=== PATIENT | male | born 1975 | race Caucasian/White ===

== ENCOUNTER 2021-01-26 21:07 | Inpatient (IN) | payer BC, SELFPAY ==
[~2021-01-26] VITALS: Ht 175.3 cm; Wt 97.4 kg
[2021-01-26] MEDS ORDERED: COSE1INJ SC (23:04)
[2021-01-26 23:08] LABS: BASO # 0.1 10^3/uL (0.0-0.2); BASO % 0.6 % (0.0-1.0); EOS % 0.2 % (0.0-3.0); HEMATOCRIT 44.6 % (42.0-52.0); HEMOGLOBIN 15.3 g/dl (13.5-17.5); LYMPH # 1.3 10^3/uL (1.5-5.0); MEAN CORPUSCULAR HEMOGLOBIN 29.4 pg (27.0-33.0); MEAN CORPUSCULAR HGB CONC 34.3 g/dl (32.0-36.5); MEAN CORPUSCULAR VOLUME 85.8 fl (80.0-96.0); MONO # 1.4 10^3/uL (0.0-0.8); MONO % 11.2 % (2.0-8.0); NEUTROPHILS # 9.3 10^3/uL (1.5-8.5); NEUTROPHILS % 76.6 % (36.0-66.0); PLATELET COUNT, AUTOMATED 297 10^3/uL (150-450); WHITE BLOOD COUNT 12.2 10^3/uL (4.0-10.0)
--- NOTE | 2021-01-26 23:18 | REPVR ---
PROCEDURE INFORMATION: Exam: CT Head Without Contrast Exam date and time: 01/26/2021 10:59 PM Age: 45 years old Clinical indication: Altered mental status/memory loss TECHNIQUE: Imaging protocol: Computed tomography of the head without contrast. Radiation optimization: All CT scans at this facility use at least one of these dose optimization techniques: automated exposure control; mA and/or kV adjustment per patient size (includes targeted exams where dose is matched to clinical indication); or iterative reconstruction. COMPARISON: No relevant prior studies available. FINDINGS: Brain: Normal. No hemorrhage. Unremarkable white matter. No mass effect. Cerebral ventricles: No ventriculomegaly. Paranasal sinuses: Mild paranasal sinus disease. Mastoid air cells: Visualized mastoid air cells are well aerated. Bones/joints: Unremarkable. No acute fracture. Soft tissues: Unremarkable. IMPRESSION: No acute intracranial abnormality. Electronically signed by: Alejandro Malcolm On 01/26/2021 23:18:02 PM
[2021-01-26 23:50] LABS: ACETAMINOPHEN LEVEL < 2.0 UG/ML (10.0-30.0); ALBUMIN 4.4 GM/DL (3.2-5.2); ALT/SGPT 31 U/L (12-78); BILIRUBIN,DIRECT 0.2 MG/DL (0.0-0.2); BILIRUBIN,TOTAL 0.8 MG/DL (0.2-1.0); BLOOD UREA NITROGEN 12 MG/DL (7-18); CALCIUM LEVEL 9.4 MG/DL (8.5-10.1); CARBON DIOXIDE LEVEL 26 MEQ/L (21-32); CHLORIDE LEVEL 109 MEQ/L (98-107); CK-MB VALUE MASS < 1.0 NG/ML (<3.6); CPK CREATINE PHOSPHOKINASE 136 U/L (39-308); CREATININE FOR GFR 1.03 MG/DL (0.70-1.30); ETHYL ALCOHOL (ETHANOL) < 0.003 % (0.000-0.010); GLOMERULAR FILTRATION RATE > 60.0 (>60); GLUCOSE, FASTING 110 MG/DL (70-100); MB/CK RELATIVE INDEX 0.74 (< OR =4); POTASSIUM SERUM 3.8 MEQ/L (3.5-5.1); SALICYLATE LEVEL < 1.7 MG/DL (5.0-30.0); SODIUM LEVEL 140 MEQ/L (136-145); THYROID STIMULATING HORMONE 0.827 uIU/ML (0.358-3.740); TROPONIN I < 0.02 NG/ML (< 0.10)
[2021-01-27 02:46] LABS: AMPHETAMINES LEVEL URINE NEGATIVE (NEGATIVE); BARBITURATES URINE NEGATIVE (NEGATIVE); BENZODIAZEPINES URINE NEGATIVE (NEGATIVE); CANNABINOIDS URINE NEGATIVE (NEGATIVE); COCAINE METABOLITE URINE NEGATIVE (NEGATIVE); METHADONE URINE NEGATIVE (NEGATIVE); OPIATES URINE NEGATIVE (NEGATIVE); PHENCYCLIDINE URINE NEGATIVE (NEGATIVE)
[2021-01-27] MEDS ORDERED: D31000TA2 PO (04:19)
[2021-01-27] MEDS ORDERED: BAYE325T13 PO (04:19)
[2021-01-27] MEDS ORDERED: BENA25CA4 PO (04:19)
[2021-01-27] MEDS ORDERED: COSE1INJ SC (04:19)
[2021-01-27] MEDS ORDERED: ACET-897 PO (04:19)
[2021-01-27] MEDS ORDERED: HOME MED LIST COMPLETE! XX SCH (04:20)
[2021-01-27 05:17] LABS: RSV AMPLIFICATION NEGATIVE (NEGATIVE)
[2021-01-27] MEDS ORDERED: atenoloL 25 MG TAB PO ONE (08:30)
[2021-01-27 11:09] VITALS: BP 166/98
[2021-01-27 11:09] LABS: INR 1.05; PROTHROMBIN TIME 14.2 SECONDS (12.7-14.5)
[2021-01-27 11:10] LABS: FIBRINOGEN 257 MG/DL (268-480); PARTIAL THROMBOPLASTIN TIME 31.1 SECONDS (25.9-37.0)
[2021-01-27 11:25] LABS: C REACTIVE PROTEIN QUANTITATIV < 0.30 MG/DL (0.00-0.30); FERRITIN 160 NG/ML (26-388); LDH LACTATE DEHYDROGENASE 166 U/L (87-241)
[2021-01-27 11:47] LABS: D-DIMER QUANT < 270 ng/ml (<500)
[2021-01-27] MEDS: METOPROLOL TART 25 MG TABLET PO SCH ×2 (12:00→12:35)
[2021-01-27] MEDS: lisinopriL 5 MG TAB PO SCH ×2 (12:15→12:35)
[2021-01-27 12:34] VITALS: BP 134/90
[2021-01-27] MEDS ORDERED: FIORICET TAB PO ONE (12:40)
[2021-01-27] MEDS ORDERED: ACETAMINOPHEN TAB 650MG DOSE (2X325MG) PO PRN (12:40)
[2021-01-27] MEDS ORDERED: ACETAMINOPHEN 500 MG TAB PO ONE (12:40)
[2021-01-27] MEDS ORDERED: LISI10TA22 PO (13:25)
[2021-01-27] MEDS ORDERED: MAXA10TA14 PO (13:27)
[2021-01-27] MEDS ORDERED: IBUPROFEN 400MG TAB PO PRN (13:30)
[2021-01-27] MEDS ORDERED: METOCLOPRAMIDE 10 MG TAB PO PRN (13:30)
[2021-01-27] MEDS ORDERED: RIZATRIPTAN BENZOATE 10 MG TAB PO PRN (14:00)
--- NOTE | 2021-01-27 14:37 | HPEPDOC ---
[facility] Medical History & Physical Date of Admission Jan 27, 2021 Date of Service: Jan 27, 2021 History and Physical CHIEF COMPLAINT: Psychosis HISTORY OF PRESENT ILLNESS: 45-year-old male brought into the emergency room due to psychosis found to be positive for coronavirus with uncontrolled hypertension. Psychiatrist refuses admission to inpatient mental health unit and recommended admission to the medical service for uncontrolled hypertension and evaluation for coronavirus complications. Patient says that he has a brain tumor but this was evaluated with a CT of the head which was negative. He complains of headache for the past year for which she takes Tylenol or ibuprofen at home without nausea or vomiting diplopia or changes in visual acuity. Despite being positive for coronavirus patient has had no fever chills anosmia or dysgeusia changes in appetite nausea vomiting abdominal pain diarrhea cough shortness of breath chest pain pressure tightness muscle aches joint pain skin rash. Patient was given metoprolol lisinopril with improvement in blood pressure to 134/90. Patient was kept on contact and droplet precautions due to coronavirus infection. Inflammatory markers were normal chest x-ray had no infiltrates and patient is saturating 100% on room air not requiring supplemental oxygen and in no distress. PAST MEDICAL HISTORY: Dental caries Dyslipidemia Seasonal allergies PAST SURGICAL HISTORY: Dental extraction SOCIAL HISTORY: Full code Social alcohol use Few cigarettes while drinking alcohol Unemployed Previously worked in the [employer] industry FAMILY HISTORY: Father unknown medical problems mother no medical problems ALLERGIES: Please see below. REVIEW OF SYSTEMS: 10 point systems negative aside from positive findings in HPI HOME MEDICATIONS: Please see below. PHYSICAL EXAMINATION: VITAL SIGNS: See below GENERAL APPEARANCE: No distress HEENT: Extraocular muscles intact no JVD thyromegaly moist mucous membranes tongue is midline uvula is midline CARDIOVASCULAR: S1-S2 regular rate rhythm no murmurs rubs or gallops LUNGS: Clear to auscultation no wheezing or rales ABDOMEN: Positive bowel sounds soft nontender nondistended no rebound or guarding EXTREMITIES: No cyanosis clubbing or pitting edema LABORATORY DATA: See below. IMAGING: See below MICROBIOLOGY: Please see below. ASSESSMENT: 45-year-old male admitted to the medical service due to uncontrolled hypertension and positive coronavirus which was an incidental finding and remains asymptomatic with 100% on room air saturation chest x-ray being negative and unremarkable inflammatory markers. Patient was brought into the emergency room due to psychosis saying that he has a brain tumor with negative CT of the head. Uncontrolled hypertension Responded well to metoprolol and lisinopril Continue on lisinopril Vital signs every shift Check lipid profile and A1c in the morning to rule out metabolic syndrome Coronavirus positive Incidental finding on routine screening Patient is asymptomatic Chest x-ray has no infiltrates Patient is not hypoxic and saturating 100% on room air Contact and droplet isolation Quarantine for 10 days Psychosis Patient is convinced that he has a brain tumor CT of the head is negative Psychiatric referral in the morning and transferred to inpatient mental health unit if a bed is available. Headache As needed fioricet, maxalt, ibuprofen. Outpatient referral to neurology once out of quarantine for coronavirus for maintenance therapy. MRI of the brain as outpatient once the patient is out of quarantine for coronavirus. Vital Signs Vital Signs Date Time Temp Pulse Resp B/P (MAP) Pulse Ox O2 Delivery O2 Flow Rate FiO2 01/27/21 14:20 18 01/27/21 12:34 69 134/90 (105) 01/27/21 11:09 96.7 100 Room Air Laboratory Data Labs 24H Laboratory Tests 2 01/26/21 22:47: Immature Granulocyte % (Auto) 0.4, Neutrophils (%) (Auto) 76.6H, Lymphocytes (%) (Auto) 11.0L, Monocytes (%) (Auto) 11.2H, Eosinophils (%) (Auto) 0.2, Basophils (%) (Auto) 0.6, Neutrophils # (Auto) 9.3H, Lymphocytes # (Auto) 1.3L, Monocytes # (Auto) 1.4H, Eosinophils # (Auto) 0.0, Basophils # (Auto) 0.1, Nucleated Red Blood Cells % (auto) 0.0, Anion Gap 5L, Glomerular Filtration Rate > 60.0, Calcium Level 9.4, Total Bilirubin 0.8, Direct Bilirubin 0.2, Aspartate Amino Transf (AST/SGOT) 12, Alanine Aminotransferase (ALT/SGPT) 31, Alkaline Phosphatase 106, Total Creatine Kinase 136, Creatine Kinase MB < 1.0, Creatine Kinase MB Relative Index 0.74, Troponin I < 0.02, Total Protein 7.0, Albumin 4.4, Albumin/Globulin Ratio 1.7, Thyroid Stimulating Hormone (TSH) 0.827, Sali cylates Level < 1.7L, Acetaminophen Level < 2.0L, Ethyl Alcohol Level < 0.003 01/27/21 01:18: Urine Color YELLOW, Urine Appearance HAZY, Urine pH 5.0, Urine Specific [place] 1.025, Urine Protein 1+H, Urine Glucose (UA) 1+H, Urine Ketones 2+H, Urine Blood NEGATIVE, Urine Nitrite NEGATIVE, Urine Bilirubin NEGATIVE, Urine Urobilinogen 2.0H, Urine Leukocyte Esterase NEGATIVE, Urine WBC (Auto) 1, Urine RBC (Auto) 1, Urine Hyaline Casts (Auto) 3, Urine Bacteria (Auto) NEGATIVE, Urine Squamous Epithelial Cells 0, Urine Mucus (Auto) LARGE, Urine Sperm (Auto) , Urine Opiates Screen NEGATIVE, Urine Methadone Screen NEGATIVE, Urine Barbiturates Screen NEGATIVE, Urine Phencyclidine Screen NEGATIVE, Urine Amphetamines Screen NEGATIVE, Urine Benzodiazepines Screen NEGATIVE, Urine Cocaine Metabolite Screen NEGATIVE, Urine Cannabinoids Screen NEGATIVE 01/27/21 04:25: Coronavirus (COVID-19)(PCR) POSITIVEA, Influenza Type A (RT-PCR) NEGATIVE, Influenza Type B (RT-PCR) NEGATIVE, Respiratory Syncytial Virus (PCR) NEGATIVE 01/27/21 09:53: Erythrocyte Sedimentation Rate 1, Prothrombin Time 14.2H, Prothromb Time International Ratio 1.05, Activated Partial Thromboplast Time 31.1, Fibrinogen 257, D-Dimer, Quantitative < 270, Ferritin 160, Lactate Dehydrogenase 166, C- Reactive Protein, Quantitative < 0.30, Procalcitonin <0.05 CBC/BMP Laboratory Tests 01/26/21 22:47 Home Medications Scheduled Acetaminophen (Tylenol Extra Strength) 500 Mg Tablet, 1,000 MG PO QHS Aspirin (Aspirin) 325 Mg Tablet, 650 MG PO QHS Cholecalciferol (Vitamin D3) (Vitamin D3) 1,000 Unit Tablet, 1,000 UNITS PO DAILY Diphenhydramine HCl (Benadryl) 25 Mg Capsule, 50 MG PO QHS Lisinopril (Lisinopril) 10 Mg Tablet, 10 MG PO DAILY Rizatriptan Benzoate (Maxalt) 10 Mg Tablet, 1 TAB PO ASDIRECTED for headache Secukinumab (Cosentyx Pen (2 Pens)) 150 Mg/1 Ml Pen.injctr, 300 MG SC Q4WKS LAST DOSE WAS IN THE BEGINNING OF DECEMBER Allergies Coded Allergies: No Known Allergies (Unverified , 10/27/21) A-FIB/CHADSVASC A-FIB History Current/History of A-Fib/PAF?: No Current PO Anticoag Therapy: No Age/Risk Factor Scoring CHADSVASC: CHADSVASC Response (Comments) Value Age Risk Factor Age < 65 years old 0 Gender Risk Factor Male 0 Hx of CHF No 0 Hx of HTN No 0 Hx of Stroke/TIA/or VTE No 0 Hx of Diabetes No 0 Hx of Vascular Disease No 0 Total 0 Treatment Treatment ordered: NONE AMILCAR ALEXANDER MD Jan 27, 2021 14:36
[2021-01-27] MEDS ORDERED: **hydrALAZINE HCL** 25 MG TAB PO PRN (18:10)
[2021-01-27] MEDS ORDERED: traZODone 50 MG TAB PO PRN (18:45)
[2021-01-27 20:00] VITALS: BP 152/85
--- NOTE | 2021-01-27 20:15 | ECGEPIP ---
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
[2021-01-27 21:45] VITALS: BP 170/100
[2021-01-27] MEDS ORDERED: LORazepam 1 MG TAB PO PRN (21:55)
[2021-01-28 01:26] VITALS: BP 122/68
[2021-01-28 05:49] VITALS: BP 110/57
[2021-01-28 07:15] LABS: HEMATOCRIT 46.2 % (42.0-52.0); HEMOGLOBIN 15.7 g/dl (13.5-17.5); MEAN CORPUSCULAR HEMOGLOBIN 29.5 pg (27.0-33.0); MEAN CORPUSCULAR VOLUME 86.7 fl (80.0-96.0); PLATELET COUNT, AUTOMATED 286 10^3/uL (150-450); RED BLOOD COUNT 5.33 10^6/uL (4.30-6.10); WHITE BLOOD COUNT 7.4 10^3/uL (4.0-10.0)
--- NOTE | 2021-01-28 07:38 | REP ---
INDICATION: covid positive r/o pneumonia. COMPARISON: None. TECHNIQUE: Single portable AP view of the chest was performed. FINDINGS: There is no acute infiltrate or pulmonary edema. Lungs are clear. The heart is not significantly enlarged. The mediastinal silhouette is unremarkable. The visualized osseous structures are intact. IMPRESSION: No acute pulmonary disease. <Electronically signed by Mitchel Brown > 01/27/21 0909
[2021-01-28 08:02] LABS: ALBUMIN 3.9 GM/DL (3.2-5.2); ALT/SGPT 29 U/L (12-78); BILIRUBIN,TOTAL 0.9 MG/DL (0.2-1.0); BLOOD UREA NITROGEN 9 MG/DL (7-18); CARBON DIOXIDE LEVEL 27 MEQ/L (21-32); CHLORIDE LEVEL 109 MEQ/L (98-107); CHOLESTEROL LEVEL 170 MG/DL (<200); CHOLESTEROL RISK RATIO 4.358 (<5); CREATININE FOR GFR 0.98 MG/DL (0.70-1.30); GLOMERULAR FILTRATION RATE > 60.0 (>60); GLUCOSE, FASTING 98 MG/DL (70-100); HDL CHOLESTEROL 39 MG/DL (>40); LDL CHOLESTEROL 104 MG/DL (<100); MAGNESIUM LEVEL 1.8 MG/DL (1.8-2.4); NON-HDL-C 131 MG/DL; POTASSIUM SERUM 3.4 MEQ/L (3.5-5.1); SODIUM LEVEL 140 MEQ/L (136-145); TOTAL PROTEIN 6.8 GM/DL (6.4-8.2); TRIGLYCERIDES LEVEL 134 MG/DL (<150)
[2021-01-28 08:44] LABS: HEMOGLOBIN A1c 5.3 %
--- NOTE | 2021-01-28 09:22 | DS.PDOC ---
Discharge Summary General Date of Admission Jan 27, 2021 at 08:23 Date of Discharge 01/28/21 DISCHARGED TO [facility] ACCEPTING MD: DR JOSE DX: PSYCHOSIS Discharge Summary DISCHARGE DIAGNOSES: Uncontrolled hypertension Incidental finding of coronavirus 19+ on routine screening Psychosis History of allergic rhinitis Headache DISCHARGE MEDICATIONS: See below DISCHARGE INSTRUCTIONS: Patient is to be transferred to the inpatient mental health unit regarding his psychosis to be managed by the primary psychiatric team accepting physician is Dr. Shanell Jose. At hospital discharge patient should follow-up with her primary care physician within 1 week. Primary care physician to refer to neurology regarding recurrent headaches. CT of the head was negative . HOSPITAL COURSE: 45-year-old male admitted to the medical service due to uncontrolled hypertension and positive coronavirus which was an incidental finding and remains asymptomatic with 100% on room air saturation chest x-ray being negative and unremarkable inflammatory markers. Patient was brought into the emergency room due to psychosis saying that he has a brain tumor with negative CT of the head. In the ER patient was found to have uncontrolled hypertension and routine screening for coronavirus was positive. Hospitalist was asked to admit the patient for blood pressure control. He was kept on contact and droplet precautions. Uncontrolled hypertension Responded well to metoprolol and lisinopril ContinueD on lisinopril with holding parameters Vital signs every shift Checked lipid profile and A1c in the morning to rule out metabolic syndrome Coronavirus positive Incidental finding on routine screening Patient is asymptomatic Chest x-ray has no infiltrates Patient is not hypoxic and saturating 100% on room air Contact and droplet isolation Quarantine for 10 days Psychosis Patient is convinced that he has a brain tumor CT of the head is negative [facility] admission if bed is available. Psychiatrist Dr. Jose has been consulted. Headache As needed fioricet, maxalt, ibuprofen. Outpatient referral to neurology once out of quarantine for coronavirus for maintenance therapy. MRI of the brain as outpatient once the patient is out of quarantine for coronavirus. DISCHARGE PHYSICAL EXAMINATION: VITAL SIGNS: See below GENERAL APPEARANCE: No distress HEENT: Extraocular muscles intact no JVD thyromegaly moist mucous membranes tongue is midline uvula is midline CARDIOVASCULAR: S1-S2 regular rate rhythm no murmurs rubs or gallops LUNGS: Clear to auscultation no wheezing or rales ABDOMEN: Positive bowel sounds soft nontender nondistended no rebound or guarding EXTREMITIES: No cyanosis clubbing or pitting edema LABORATORY DATA: See below. IMAGING: See below MICROBIOLOGY: Please see below. TIME SPENT ON DISCHARGE: 30 MINUTES Vital Signs/I&Os Vital Signs Date Time Temp Pulse Resp B/P (MAP) Pulse Ox O2 Delivery O2 Flow Rate FiO2 01/28/21 08:52 117/66 01/28/21 05:49 96.8 79 18 100 Room Air I&O- Last 24 Hours up to 6 AM 01/28/21 06:00 Intake Total 990 ml Balance 990 ml Laboratory Data Labs 24H Laboratory Tests 2 01/27/21 09:53: Erythrocyte Sedimentation Rate 1, Prothrombin Time 14.2H, Prothromb Time International Ratio 1.05, Activated Partial Thromboplast Time 31.1, Fibrinogen 257, D-Dimer, Quantitative < 270, Ferritin 160, Lactate Dehydrogenase 166, C- Reactive Protein, Quantitative < 0.30, Procalcitonin <0.05 01/28/21 06:04: Nucleated Red Blood Cells % (auto) 0.0, Anion Gap 4L, Glomerular Filtration Rate > 60.0, Estimated Mean Plasma Glucose 105, Hemoglobin A1c 5.3, Calcium Level 10.0, Magnesium Level 1.8, Total Bilirubin 0.9, Aspartate Amino Transf (AST/SGOT) 14, Alanine Aminotransferase (ALT/SGPT) 29, Alkaline Phosphatase 99, Total Protein 6.8, Albumin 3.9, Albumin/Globulin Ratio 1.3, Triglycerides Level 134, Total Cholesterol 170, LDL Cholesterol 104H, Non-HDL Cholesterol (LDL + VLDL) 131, Total HDL Cholesterol 39L, Cholesterol/HDL Ratio 4.358 CBC/BMP Laboratory Tests 01/28/21 06:04 Discharge Medications Scheduled Acetaminophen (Tylenol Extra Strength) 500 Mg Tablet, 1,000 MG PO QHS, (Reported) Aspirin (Aspirin) 325 Mg Tablet, 650 MG PO QHS, (Reported) Cholecalciferol (Vitamin D3) (Vitamin D3) 1,000 Unit Tablet, 1,000 UNITS PO DAILY, (Reported) Diphenhydramine HCl (Benadryl) 25 Mg Capsule, 50 MG PO QHS, (Reported) Lisinopril (Lisinopril) 10 Mg Tablet, 10 MG PO DAILY Rizatriptan Benzoate (Maxalt) 10 Mg Tablet, 1 TAB PO ASDIRECTED for headache Secukinumab (Cosentyx Pen (2 Pens)) 150 Mg/1 Ml Pen.injctr, 300 MG SC Q4WKS, (Reported) LAST DOSE WAS IN THE BEGINNING OF DECEMBER Allergies Coded Allergies: No Known Allergies (Unverified , 01/26/21) AMILCAR ALEXANDER MD Jan 28, 2021 09:22
[2021-01-28 14:00] VITALS: BP 112/67
--- NOTE | 2021-01-28 18:46 | MHIPNPDOC ---
[facility] Progress Note Progress Note DATE OF SERVICE: 01/28/21 HISTORY: Evaluated patient via zoom. This is a 45 year old male who was brought to the ED by the Police after he was found confused and with memory lapses. According to family members he has been taking care of his grandfather and he took off, leaving his grandfather alone and that is completely out of character. This afternoon, while I was speaking with him, he reported being depressed "all my life", reported taking Lexapro. Cymbalta and Seroquel before. He says Seroquel made him feel like zombie. He reports using cocaine and and off for approximately 20 years. Reports being estranged from family members, had a recent problem with a cousin. When this insurance underwriter sales asked him what was he planning on doing in the future, he said he would be spending Thanksgiving with a lot of good friends, then he told me those friends all over the country and he became tearful. Then he told me he had lost several friends and family members, more so in the past year and he was almost in tears. VITAL SIGNS: See below. NEW TEST RESULTS: See below CURRENT MEDICATIONS: See below. MENTAL STATUS EXAMINATION: Patient is a 45-year old male, who is alert, dressed in hsopital gown, sitting on his bed, with a sitter in his room. Speech: Is rapid at times, rapid, circumstantial at times Language skills are fair Thought processes including: not very organized. Thought content: Thinking constantly about , thinks constantly about losing friends and relatives to cancer. Denies SI/HI but he says he is going to spend Thanksgiving with lots of friends who are all over the country and then he tells me has lost a lot of friends and family members to cancer. Abstract reasoning, and computation: not assessed at this time. Description of associations: he seems to be mildly delusional Description of abnormal or psychotic thoughts: He seemsto have nihilistic delusions, he is paranoid about family members. He denies TAV hallucinations, he was not responding to internal stimuli Judgment: poor Insight: poor Orientation: oriented x 3 Recent and remote memory: he has memory gaps, he seems to confabulate about his grandfather whereabouts, saying that he (GF) has covid, assuming he iw with "his friends at the hospital" Attention span and concentration: fair Language: no abnormalities observed Fund of knowledge: Mood: Depressed. Affect: congruent with mood, innapropriate, trying to conceal his sadness, trying to look happy DIAGNOSES: 1. R/O Major Depressive Disorder with psychosis 2. R/O Bipolar Disorder ASSESSMENT: The patient is depressed, trying to look happy, but he is almost in tears at times, he states he has lot lots of friends and relatives during the last year and saying he will spend Thanksgiving with family and friends that are all over the [place]. He could be suicidal and not saying it, he could be thinking about ending his life and joining his family and friends in another world. He is certainly not giving straight answers, he can't really say why he was confused. He is oriented x 3 today, his family members reported family history of mental illness and he reported it too. He mentioned being treated with Lexapro, Seroquel, Cymbalta inthe past and stopping his medications about 4 years ago. He will need to be admitted to [facility]. MANAGEMENT PLAN: Admit to [facility], send legals to [facility]. TIME SPENT: 30 minutes. Vital Signs Vital Signs Date Time Temp Pulse Resp B/P (MAP) Pulse Ox O2 Delivery O2 Flow Rate FiO2 01/28/21 14:00 96.7 82 18 112/67 (82) 96 Room Air Laboratory Data 24H Labs Laboratory Tests 2 01/28/21 06:04: Nucleated Red Blood Cells % (auto) 0.0, Anion Gap 4L, Glomerular Filtration Rate > 60.0, Estimated Mean Plasma Glucose 105, Hemoglobin A1c 5.3, Calcium Level 10.0, Magnesium Level 1.8, Total Bilirubin 0.9, Aspartate Amino Transf (AST/SGOT) 14, Alanine Aminotransferase (ALT/SGPT) 29, Alkaline Phosphatase 99, Total Protein 6.8, Albumin 3.9, Albumin/Globulin Ratio 1.3, Triglycerides Level 134, Total Cholesterol 170, LDL Cholesterol 104H, Non-HDL Cholesterol (LDL + VLDL) 131, Total HDL Cholesterol 39L, Cholesterol/HDL Ratio 4.358 CBC/BMP Laboratory Tests 01/28/21 06:04 Current Medications Current Medications Medications (Trade) Dose Ordered Sig/Bruno Route PRN Reason Start Time Stop Time Status Last Admin Dose Admin Acetaminophen (Tylenol Tab) 650 mg Q4HP PRN PO MILD PAIN or TEMP > 101 01/27/21 12:40 Home Med (Home Med List Complete!) ASDIRECTED XX 01/27/21 04:20 01/27/21 04:28 DC Hydralazine HCl (Apresoline) 25 mg Q6HP PRN PO sbp>140 or dbp>90 01/27/21 18:10 01/27/21 21:54 Ibuprofen (Advil) 400 mg Q6HP PRN PO HEADACHE 01/27/21 13:30 Lisinopril (Prinivil) 5 mg BID PO 01/27/21 12:15 01/27/21 18:07 DC Lisinopril (Prinivil) 10 mg BID PO 01/27/21 21:00 01/27/21 21:53 Lorazepam (Ativan) 1 mg Q4HP PRN PO ANXIETY 01/27/21 21:55 Metoclopramide HCl (Reglan) 10 mg Q6HP PRN PO HEADACHE 01/27/21 13:30 01/27/21 13:38 DC Metoprolol Tartrate (Lopressor) 25 mg Q6H PO 01/27/21 12:00 01/27/21 13:26 DC Rizatriptan Benzoate (Maxalt) 10 mg Q2HP PRN PO MIGRAINE 01/27/21 14:00 Trazodone HCl (Desyrel) 50 mg QHSP PRN PO INSOMNIA 01/27/21 18:45 01/27/21 21:54 Allergies Coded Allergies: No Known Allergies (Unverified , 01/26/21) REMBERTO JOSE MD Jan 28, 2021 16:21
[2021-01-28 21:00] VITALS: BP 121/71
[2021-01-28 21:08] VITALS: BP 121/71
[2021-01-29] MEDS ORDERED: LISI10TA22 PO (00:42)
[2021-01-29] MEDS ORDERED: MAXA10TA14 PO (00:42)
--- NOTE | 2021-01-29 17:49 | ECGEPIP ---
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
--- NOTE | 2021-01-29 22:12 | MHHPEPDOC ---
General Date Of Admission: Jan 29, 2021 Legal Status: 9.39 Chief Complaint Psychosis History of Present Illness HISTORY OF THE PRESENT ILLNESS: Patient is a 45 -year-old , male, who, as per previous note ( I wrote this note yesterday when I did a consult before I accepted him at [facility]); " Evaluated patient via zoom. This is a 45 year old male who was brought to the ED by the Police after he was found confused and with memory lapses. According to family members he has been taking care of his grandfather and he took off, leaving his grandfather alone and that is completely out of character. This afternoon, while I was speaking with him, he reported being depressed "all my life", reported taking Lexapro. Cymbalta and Seroquel before. He says Seroquel made him feel like zombie. He reports using cocaine and and off for approximately 20 years. Reports being estranged from family members, had a recent problem with a cousin. When this credit underwriter asked him what was he planning on doing in the future, he said he would be spending Thanksgiving with a lot of good friends, then he told me those friends all over the country and he became tearful. Then he told me he had lost several friends and family members, more so in the past year and he was almost in tears. ". TODAY, JANUARY 29, 2021: THE PATIENT WAS NOT ABLE TO SPEAK WITH ME BECAUSE HE WAS SLEEPING. hE DIDN'T SLEEP LAST NIGHT AND HE WAS RESTRAINED, HE RECEIVED HALDOL TWICE AND THORAZINE ONCE. EVENTUALLY, AROUND 5 A.M., HE FEEL ASLEEP. HE SLEPT THE ENTIRE DAY AND DIDN'T WAKE UPWHEN i CAME IN TO TALK TO HIM THE RESULTS OF THE EVALUATION ARE FROM YESTERDAY 01/28/21, WHEN I DID A CONSULT ON HIM. I COULDN'T EVALUATE HIM TODAY BECAUSE HE WAS ASLEEP Psychiatric Review of Systems Depression (2 or more weeks): depressed mood, insomnia/hypersomnia, feelings of excess/guilt, feelings of worthlesness, difficulty concentrating, appetite changes, other (THIS IS THE RESULT OF THE EVALUATION I DID ON HIM ON 01/28/21. TODAY, 01/29/21, HE WAS SOUND ASLEEP) Lazara (4 or more days of): expansive mood, decreased need for sleep, still with energy, talkativity, pressured, distractibility Psychosis: delusions, paranoia PTSD: denies Anxiety: gen/non-specific anxiety, situational anxiety Anxiety/ 6 months or more of: restlessness, keyed up, easily fatigued, difficulty concentrating, irritability, sleep disturbance Past Psychiatric History Previous Psychiatric Diagnosis: According to what the patient reported yesterday, 01/28/21: anxiety and depression Previous Psychiatric Admissions: Denied Suicide Attempts: Denied. Psychiatric Follow-up: None Psychiatric medications: He says he took Seroquel, Duloxetine and Citalopram but he stopped taking these medications about 4 years ago. He reported Seroquel made him feel like a zombie Past Medical History Medical Problems the patient said yesterday, 01/28/21, he had been taking "cancer pills" for more than 20 years and then he said he never had cancer but had psoriasis and "those are the same pills people take for cancer because they suppress their immune system" Head Injury: No Seizures: No Hospitalizations: Yes Surgeries: No (he said he was not really sure, on 01/28/21) Family Medical/Psychiatric HX Medical Problems Reports a family history of cancer Psychiatric Disorders: Yes (he says" all my family has psychiatric illnesses, but I don't know exactly what") Addiction: Yes (he said one of hisbrothers had problems) Suicide Attemps/Completions: No Addiction History other (He said for 20 years he hadused cocaine on and off but not recently) Social History Childhood: He said he had relatives, grew up with his parents, he is vague about his siblings, mentions he has a brother and apparently a sister, because this information might not be reliable because he is psychotic at this time Abuse/Trauma: He didn't respond this question Current Living Situation: Lives with his grandfather, apparently in [place], [place], where he takes care of his Education: He said he finished HS Employment: Unemployed Social Support: He says he has distanced himself from his family . Legal: He didn't answer this question Marital: He didn't answer this question. Mental Status Examination General Appearance: well groomed, appears stated age, hospital scubs/clothing Build: overweight Demeanor: average Eye Contact: avoidant Activity: anxious Behavior: cooperative, restless Speech: clear, spontaneous, reg/rate,rhythm,volume, other (disorganized at times) Mood: depressed, anxious, hypomanic Affect: full, labile, anxious, other (he tries to cover his sadness, tries to appear extremely happy, joking but he is amost tearful at times) Thought Process: circumstantial, loose, flight of ideas Thought Content (Delusions): somatic (he is extremely focused on cancer), para noia (paranoid about family members) Thought Content (Aggressive): none reported Perception (Hallucinations): none reported Perception (Other): none reported Cognition (Impairment of): attention/concentration Cognition(Intelligence Est.): average Oriented: Awake, Alert, Oriented times three Insight: poor Judgment: Poor Diagnoses 1.Unspecified mood disorder 2. R/O MDD with psychosis 3. R/O Bipolar disorder 4 A-FIB/CHADSVASC A-FIB History Current/History of A-Fib/PAF?: No Current PO Anticoag Therapy: No Age/Risk Factor Scoring CHADSVASC: CHADSVASC Response (Comments) Value Age Risk Factor Age < 65 years old 0 Gender Risk Factor Male 0 Hx of CHF No 0 Hx of HTN No 0 Hx of Stroke/TIA/or VTE No 0 Hx of Diabetes No 0 Hx of Vascular Disease No 0 Total 0 Treatment Treatment ordered: NONE Reason Anticoagulant not given: Not indicated/[id number] Assessment The patient couldn't be evaluated today, because he was sound asleep. I evaluated him on 01/28/21 while he was at the covid unit, I zoomed with him. He is depressed but he is trying to cover his depression by trying to look extremely happy. He has been acting bizarre according to family members, acting paranoid, leaving his GF alone before he was found and brought to the ED. He could have abused a substance, one of the many that are not detected in regular urine tox. He had a hard time falling asleep yesterday, he was still psychotic, he had to be restrained. Initial Treatment Plan 1. Patient was admitted on a [9.39] status. 2. Complete history was obtained. 3. With patients permission, family will be contacted and database will be expanded. 4. Patients medication regimen will be reviewed and changed accordingly. 5. Patient will be provided with protected environment. 6. Patient will be treated with individual, group, and milieu therapies. 7. Patient will receive supportive psych-education. 8. Discharge planning will commence immediately. 9. Outpatient follow-up treatment will be strongly recommended. 10. The initial treatment plan will focus initially on: * Depression. * Risk for suicide. * altered thoughts * anxiety * psychosis ESTIMATED LENGTH OF STAY: 5-7 DAYS. TIME SPENT COUNSELING AND COORDINATING INITIAL CARE: 60 minutes. Tobacco Cessation Screen If Patient is a Smoker no N/A-No Antipsychotics Vital Signs Vital Signs Date Time Temp Pulse Resp B/P (MAP) Pulse Ox O2 Delivery O2 Flow Rate FiO2 01/28/21 21:08 96.4 72 18 121/71 (88) 96 Room Air Medications Scheduled Acetaminophen (Tylenol Extra Strength) 500 Mg Tablet, 1,000 MG PO QHS for . , (Reported) Aspirin (Aspirin) 325 Mg Tablet, 650 MG PO QHS for . , (Reported) Cholecalciferol (Vitamin D3) (Vitamin D3) 1,000 Unit Tablet, 1,000 UNITS PO DAILY for . , (Reported) Diphenhydramine HCl (Benadryl) 25 Mg Capsule, 50 MG PO QHS for . , (Reported) Lisinopril (Lisinopril) 10 Mg Tablet, 10 MG PO DAILY for . , (Reported) Secukinumab (Cosentyx Pen (2 Pens)) 150 Mg/1 Ml Pen.injctr, 300 MG SC Q4WKS for . , (Reported) LAST DOSE WAS IN THE BEGINNING OF DECEMBER Scheduled PRN Rizatriptan Benzoate (Maxalt) 10 Mg Tablet, 10 MG PO BID PRN for MIGRAINE, (Reported) Allergies Coded Allergies: No Known Allergies (Unverified , 01/26/21) REMBERTO JOSE MD Jan 29, 2021 22:12
== END 2021-01-28 22:43 | DRG 199 ==
LOC: M ED 21:07 → M ED INP 01-27 08:23 → ENRESERV 01-27 09:37 → M 4MAIN 01-27 11:04
PROVIDERS: ADMIT General Practice; ATTEND General Practice
DX: I10 Essential (primary) hypertension (principal); F29 Unspecified psychosis not due to a substance or known physiological condition; R51.9 Headache, unspecified; Z79.82 Long term (current) use of aspirin; Z79.899 Other long term (current) drug therapy

== ENCOUNTER 2021-01-28 19:39 | Inpatient (IN) | payer BC, SELFPAY ==
[~2021-01-28] VITALS: Ht 175.3 cm; Wt 97.4 kg
[~2021-01-28 19:39] MED LIST: ACET-897 PO; BAYE325T13 PO; BENA25CA4 PO; COSE1INJ SC; D31000TA2 PO; LISI10TA22 PO; MAXA10TA14 PO
[2021-01-28] MEDS ORDERED: MAALOX 30 ML SUSP *UDC PO PRN (20:15)
[2021-01-28] MEDS ORDERED: ACETAMINOPHEN TAB 650MG DOSE (2X325MG) PO PRN (20:15)
[2021-01-28] MEDS ORDERED: traZODone 50 MG TAB PO PRN (20:15)
[2021-01-28] MEDS ORDERED: OLANZapine ORAL DISINTEGRATING TAB 5MG PO PRN (20:15)
[2021-01-28] MEDS ORDERED: MOM 30ML SUSPENSION UDC PO PRN (20:15)
[2021-01-28] MEDS ORDERED: diphenhydrAMINE 50MG/ML VIAL (J1200) IM STA (23:16)
[2021-01-28] MEDS ORDERED: HALOPERIDOL 5MG/ML VIAL (J1630 PER 1) IM STA (23:16)
[2021-01-28] MEDS ORDERED: LORazepam 2 MG/ML VIAL IM STA (23:16)
--- NOTE | 2021-01-28 23:23 | IPNPDOC ---
Text Note Date of Service The patient was seen on 01/28/21. NOTE TIME OF SERVICE 1115PM PSYCH CERTIFICATION FOR CODE 25 FACE TO FACE: yes PHYSICIAN ASSESSMENT: The patient was agitated and not following verbal instructions VITALS pending... MSK: gait normal REASON FOR RESTRAINT: The patient was patient was refusing to stay in his room, refusing to follow commands and refusing to take medications. He has COVID 19 and his behavior is putting staff members and other [facility] residents at risk of jovanna COVID. DE-ESCALATION INTERVENTIONS ATTEMPTED BEFORE USE OF RESTRAINTS: verbal redirection [MECHANICAL AND/OR CHEMICAL] RESTRAINTS USED: Both LENGTH OF TIME ORDERED IN RESTRAINTS: 4 hours WHEN TO DISCONTINUE RESTRAINTS: When the patient is no longer a threat to others Post evaluation of restraint due in 24 hours. CHAY ZAPIEN MD Jan 28, 2021 23:22
--- OUTSIDE RECORDS SUMMARY | 2021-01-28 23:23 | CCD ---
Author Author [facility] Organization [facility] Address Unknown Phone Unavailable Care Team Providers Care Pulmonary Function Technologist Name Role Phone BOAZ BANUELOS Unavailable Unavailable STOHR, F MARK ANTHONY PA Unavailable Unavailable STOHR, F MARK ANTHONY PA Unavailable Unavailable STOHR, F MARK ANTHONY PA Unavailable Unavailable STOHR, F MARK ANTHONY PA Unavailable Unavailable STOHR, F MARK ANTHONY PA Unavailable Unavailable STOHR, F MARK ANTHONY PA Unavailable Unavailable STOHR, F MARK ANTHONY PA Unavailable Unavailable STOHR, F MARK ANTHONY PA Unavailable Unavailable STOHR, F MARK ANTHONY PA Unavailable Unavailable STOHR, F MARK ANTHONY PA Unavailable Unavailable STOHR, F MARK ANTHONY PA Unavailable Unavailable STOHR, F MARK ANTHONY PA Unavailable Unavailable STOHR, F MARK ANTHONY PA Unavailable Unavailable Re-disclosure Warning The records that you are about to access may contain information from federally-assisted alcohol or drug abuse programs. If such information is present, then the following federally mandated warning applies: This information has been disclosed to you from records protected by federal confidentiality rules (42 CFR part 2). The federal rules prohibit you from making any further disclosure of this information unless further disclosure is expressly permitted by the written consent of the person to whom it pertains or as otherwise permitted by 42 CFR part 2. A general authorization for the release of medical or other information is NOT sufficient for this purpose. The Federal rules restrict any use of the information to criminally investigate or prosecute any alcohol or drug abuse patient.The records that you are about to access may contain highly sensitive health information, the redisclosure of which is protected by Article 27-F of the [facility] Public Health law. If you continue you may have access to information: Regarding HIV / AIDS; Provided by facilities licensed or operated by the [facility] Office of Mental Health; or Provided by the [facility] Office for People With Developmental Disabilities. If such information is present, then the following [facility] mandated warning applies: This information has been disclosed to you from confidential records which are protected by state law. State law prohibits you from making any further disclosure of this information without the specific written consent of the person to whom it pertains, or as otherwise permitted by law. Any unauthorized further disclosure in violation of state law may result in a fine or fci sentence or both. A general authorization for the release of medical or other information is NOT sufficient authorization for further disc losure. Allergies and Adverse Reactions Type Description Substance Reaction Status Data Source(s ) Propensity to adverse reactions NO KNOWN ALLERGIES NO KNOWN ALLERGIES [facility] Encounters Encounter Providers Location Date Indications Data Source(s ) Outpatient Attender: [facility] PHELBOTOMISTReferrer: MARK ANTHONY HAWKINS [id number] 12/23/2020 12:14:16 PM EDT - 12/23/2020 11:59:16 PM EDT [facility] Patient discharged. Medications No Information Insurance Providers Payer name Policy type / Coverage type Policy ID Covered republican ID Covered republican's relationship to liz Policy Liz Plan Information [facility] [id number] Self [id number] SELF PAY ONLY [id number] SP [id number] Problems, Conditions, and Diagnoses Code Display Name Description Problem Type Effective Dates Data Source(s) E78.5 Hyperlipidemia, unspecified Hyperlipidemia, unspecifie d Diagnosis 12/23/2020 12:14:16 PM EDT [facility] Z13.0 Encounter for screening for diseases of the blood and blood-forming organs and certain disorders involving the immune mechanism Encounter for screening for diseases of the blood and blood-forming organs and certain disorders involving the immune mechanism Diagnosis 12/23/2020 12:14:16 PM EDT [facility] M10.9 Gout, unspecified Gout, unspecified Diagnosis 12/23/2020 12:14:16 PM EDT [facility] Z13.29 Encounter for screening for other suspec jase endocrine disorder Encounter for screening for other suspected endocrine disorder Diagnosis 0 12/23/2020 12:14:16 PM EDT [facility] Surgeries/Procedures No Information Results ID Date Data Source [id number] 01/27/2021 04:25:00 AM EDT [facility] Name Value Range Interpretation Code Description Data Jennifer rce(s) Supporting Document(s) SARS coronavirus 2 RNA [Presence] in Res piratory specimen by DONG with probe detection POSITIVE [facility] This lab was ordered by [facility] a nd reported by [facility]. Procedure Social History No Information
[2021-01-29] MEDS ORDERED: MAXA10TA14 PO (00:42)
[2021-01-29] MEDS ORDERED: LISI10TA22 PO (00:42)
[2021-01-29] MEDS ORDERED: HOME MED LIST COMPLETE! XX SCH (00:45)
[2021-01-29] MEDS ORDERED: diphenhydrAMINE 50MG/ML VIAL (J1200) IM STA (01:25)
[2021-01-29] MEDS ORDERED: HALOPERIDOL 5MG/ML VIAL (J1630 PER 1) IM STA (01:25)
[2021-01-29] MEDS ORDERED: LORazepam 2 MG/ML VIAL IM STA (01:25)
[2021-01-29] MEDS ORDERED: chlorproMAZINE INJ 50MG/2ML AMP (J3230) IM STA (03:14)
--- NOTE | 2021-01-29 03:16 | IPNPDOC ---
Text Note Date of Service The patient was seen on 01/29/21. NOTE TIME OF SERVICE 317AM PSYCH CERTIFICATION FACE TO FACE: yes PHYSICIAN ASSESSMENT: The patient is still agitated and talking loudly; per d/w RN Yariel Rocha would like to renew the physical restraints. VITALS reviewed MSK: arms and legs in restraints PSYCH: A&O /able to understand and follow all commands REASON FOR RESTRAINT: The patient was patient is still agitated and not food services coordinator perating with [facility] staff. DE-ESCALATION INTERVENTIONS ATTEMPTED BEFORE USE OF RESTRAINTS: verbal redirection [MECHANICAL AND/OR CHEMICAL] RESTRAINTS USED: Both LENGTH OF TIME ORDERED IN RESTRAINTS: 4 hours WHEN TO DISCONTINUE RESTRAINTS: When the patient is more cooperative Post evaluation of restraint due in 24 hours. CHAY ZAPIEN MD Jan 29, 2021 03:16
[2021-01-29 06:24] VITALS: BP 121/76
[2021-01-29] MEDS: SERTRALINE HCL 50 MG TAB PO SCH (09:00)
[2021-01-29 16:18] VITALS: BP 122/62
--- NOTE | 2021-01-29 18:06 | HPEPDOC ---
[facility] Medical History & Physical Date of Admission Jan 28, 2021 Date of Service: Jan 29, 2021 History and Physical CHIEF COMPLAINT: Psychosis HISTORY OF PRESENT ILLNESS: Mr. Willis is a 45-year-old male with dyslipidemia and seasonal allergies who presents with psychosis and incidentally found to be Covid positive. Patient was initially admitted to inpatient medicine on January 27, 2021. Patient's blood pressure was controlled and was medically cleared. Patient was then discharged to inpatient mental health unit. Overnight, patient was aggressive and had chemical restraints. Patient was seen this evening. He was sleeping comfortably in bed. When I woke patient, he was groggy but calm. He denied any fever, chest pain, abdominal pain, diarrhea, or dysuria. Reports some shortness of breath and sore throat from the previous night. Reviewing patient's imaging and lab work, his chest x-ray on admission was negative for any acute process. Patient is afebrile and without leukocytosis. He is doing well at room air. I cautioned the patient that if he were to feel any worsening dyspnea, productive cough, or fever, to let a nurse know. PAST MEDICAL HISTORY: 1. Dental caries 2. Dyslipidemia 3. Seasonal allergies 4. Covid positive in January 27, 2021 PAST SURGICAL HISTORY: 1. Dental extraction SOCIAL HISTORY: Tobacco use: Current smoker ETOH: Socially drinks alcohol FAMILY HISTORY: No known medical history in father or mother ALLERGIES: Please see below. REVIEW OF SYSTEMS: CONSTITUTIONAL: Denies any fever or chills. ENT: Reports sore throat. RESPIRATORY: Reports mild shortness of breath. Denies cough. CARDIOVASCULAR: Denies chest pain. GASTROINTESTINAL: Denies abdominal pain. Denies diarrhea. GENITOURINARY: Denies dysuria. CUTANEOUS: Denies rashes. HEMATOLOGICAL: Denies bruises. NEUROLOGICAL: Denies neuropathy. PSYCHOLOGICAL: Denies anxiety. Denies depression. HOME MEDICATIONS: Please see below. PHYSICAL EXAMINATION: VITAL SIGNS: Temperature 97.6, pulse 82, respiratory rate 16, blood pressure 122/62, pulse oximetry 97% on room air. GENERAL: Comfortable, in no apparent distress. HEENT: EOMI, sclera clear. NECK: Supple. RESPIRATORY: Lungs sounds are diminished but clear to auscultation bilaterally. CARDIOVASCULAR: Regular rate and rhythm. ABDOMEN: Soft, nontender, no guarding or rebound tenderness. Normal bowel sounds. MUSCLE SKELETAL: Muscle strength 5/5 in all extremities. NEUROLOGICAL: CN 312 grossly intact. PSYCHOLOGICAL: Normal mood and affect LABORATORY DATA: See below. IMAGING: Radiologist interpretation CT head without contrast No acute intracranial abnormality. Chest x-ray No acute pulmonary disease. MICROBIOLOGY: Please see below. ASSESSMENT and PLAN: 1. Psychosis Being managed in the inpatient mental health unit 2. Covid positive Saturating well at room air. No need for steroid Patient is ambulatory. Will provide DVT prophylaxis with aspirin Procalcitonin is negative. No need for antibiotics Monitor oxygen saturation and symptoms Continue quarantine If patient has a short stay in [facility], can consider outpatient monoclonal's if patient is willing to consent 3. Hypertension Blood pressures controlled off of lisinopril. Last lisinopril dose was on 01/27 May be secondary to agitation Monitor blood pressure Thank you for consulting us. We will sign off at this time. If there is any further questions or concerns, please do not hesitate to reconsult us. Vital Signs Vital Signs Date Time Temp Pulse Resp B/P (MAP) Pulse Ox O2 Delivery O2 Flow Rate FiO2 01/29/21 16:18 97.6 82 16 122/62 (82) 97 Room Air Home Medications Scheduled Acetaminophen (Tylenol Extra Strength) 500 Mg Tablet, 1,000 MG PO QHS for . Aspirin (Aspirin) 325 Mg Tablet, 650 MG PO QHS for . Cholecalciferol (Vitamin D3) (Vitamin D3) 1,000 Unit Tablet, 1,000 UNITS PO DAILY for . Diphenhydramine HCl (Benadryl) 25 Mg Capsule, 50 MG PO QHS for . Lisinopril (Lisinopril) 10 Mg Tablet, 10 MG PO DAILY for . Secukinumab (Cosentyx Pen (2 Pens)) 150 Mg/1 Ml Pen.injctr, 300 MG SC Q4WKS for . LAST DOSE WAS IN THE BEGINNING OF DECEMBER Scheduled PRN Rizatriptan Benzoate (Maxalt) 10 Mg Tablet, 10 MG PO BID PRN for MIGRAINE Allergies Coded Allergies: No Known Allergies (Unverified , 01/26/21) A-FIB/CHADSVASC A-FIB History Current/History of A-Fib/PAF?: No BEATRIZ GRIFFIN DO Jan 29, 2021 18:06
[2021-01-29] MEDS: ASPIRIN 81MG ENTERIC TABLET PO SCH (20:35)
[2021-01-30 06:58] VITALS: BP 163/93
[2021-01-30] MEDS: ASPIRIN 81MG ENTERIC TABLET PO SCH (10:09)
[2021-01-30] MEDS: SERTRALINE HCL 50 MG TAB PO SCH (10:09)
[2021-01-30 13:24] VITALS: BP 135/83
--- NOTE | 2021-01-30 15:56 | MHIPNPDOC ---
[facility] Progress Note Progress Note The following H and PE was done on 01/29/21 but unfortunately, it was done on the patient previous account, so, I have copied it to be visible on his current account [facility] History & Physical Patient Name: Isauro Willis Unit Number: [id number] Date of : 1975 Patient Status: Discharged Inpatient Attending Doctor: Landy Patterson MD History and Physical General Date Of Admission: Jan 29, 2021 Legal Status: 9.39 Chief Complaint Psychosis History of Present Illness HISTORY OF THE PRESENT ILLNESS: Patient is a 45 -year-old , male, who, as per previous note ( I wrote this note yesterday when I did a consult before I accepted him at [facility]); " Evaluated patient via zoom. This is a 45 year old male who was brought to the ED by the Police after he was found confused and with memory lapses. According to family members he has been taking care of his grandfather and he took off, leaving his grandfather alone and that is completely out of character. This afternoon, while I was speaking with him, he reported being depressed "all my life", reported taking Lexapro. Cymbalta and Seroquel before. He says Seroquel made him feel like zombie. He reports using cocaine and and off for approximately 20 years. Reports being estranged from family members, had a recent problem with a cousin. When this procedure writer asked him what was he planning on doing in the future, he said he would be spending Thanksgiving with a lot of good friends, then he told me those friends all over the country and he became tearful. Then he told me he had lost several friends and family members, more so in the past year and he was almost in tears. ". TODAY, JANUARY 29, 2021: THE PATIENT WAS NOT ABLE TO SPEAK WITH ME BECAUSE HE WAS SLEEPING. hE DIDN'T SLEEP LAST NIGHT AND HE WAS RESTRAINED, HE RECEIVED HALDOL TWICE AND THORAZINE ONCE. EVENTUALLY, AROUND 5 A.M., HE FEEL ASLEEP. HE SLEPT THE ENTIRE DAY AND DIDN'T WAKE UPWHEN i CAME IN TO TALK TO HIM THE RESULTS OF THE EVALUATION ARE FROM YESTERDAY 01/28/21, WHEN I DID A CONSULT ON HIM. I COULDN'T EVALUATE HIM TODAY BECAUSE HE WAS ASLEEP Psychiatric Review of Systems Depression (2 or more weeks): depressed mood, insomnia/hypersomnia, feelings of excess/guilt, feelings of worthlesness, difficulty concentrating, appetite changes, other (THIS IS THE RESULT OF THE EVALUATION I DID ON HIM ON 01/28/21. TODAY, 01/29/21, HE WAS SOUND ASLEEP) Lazara (4 or more days of): expansive mood, decreased need for sleep, still with energy, talkativity, pressured, distractibility Psychosis: delusions, paranoia PTSD: denies Anxiety: gen/non-specific anxiety, situational anxiety Anxiety/ 6 months or more of: restlessness, keyed up, easily fatigued, difficulty concentrating, irritability, sleep disturbance Past Psychiatric History Previous Psychiatric Diagnosis: According to what the patient reported yesterday, 01/28/21: anxiety and depression Previous Psychiatric Admissions: Denied Suicide Attempts: Denied. Psychiatric Follow-up: None Psychiatric medications: He says he took Seroquel, Duloxetine and Citalopram but he stopped taking these medications about 4 years ago. He reported Seroquel made him feel like a zombie Past Medical History Medical Problems the patient said yesterday, 01/28/21, he had been taking "cancer pills" for more than 20 years and then he said he never had cancer but had psoriasis and "those are the same pills people take for cancer because they suppress their immune system" Head Injury: No Seizures: No Hospitalizations: Yes Surgeries: No (he said he was not really sure, on 01/28/21) Family Medical/Psychiatric HX Medical Problems Reports a family history of cancer Psychiatric Disorders: Yes (he says" all my family has psychiatric illnesses, but I don't know exactly what") Addiction: Yes (he said one of hisbrothers had problems) Suicide Attemps/Completions: No Addiction History other (He said for 20 years he hadused cocaine on and off but not recently) Social History Childhood: He said he had relatives, grew up with his parents, he is vague about his siblings, mentions he has a brother and apparently a sister, because this information might not be reliable because he is psychotic at this time Abuse/Trauma: He didn't respond this question Current Living Situation: Lives with his grandfather, apparently in [place], [place], where he takes care of his GF Education: He said he finished HS Employment: Unemployed Social Support: He says he has distanced himself from his family . Legal: He didn't answer this question Marital: He didn't answer this question. Mental Status Examination Mental Status Examination General Appearance: well groomed, appears stated age, hospital scubs/clothing Build: overweight Demeanor: average Eye Contact: avoidant Activity: anxious Behavior: cooperative, restless Speech: clear, spontaneous, reg/rate,rhythm,volume, other (disorganized at times) Mood: depressed, anxious, hypomanic Affect: full, labile, anxious, other (he tries to cover his sadness, tries to appear extremely happy, joking but he is amost tearful at times) Thought Process: circumstantial, loose, flight of ideas Thought Content (Delusions): somatic (he is extremely focused on cancer), paranoia (paranoid about family members) Thought Content (Aggressive): none reported Perception (Hallucinations): none reported Perception (Other): none reported Cognition (Impairment of): attention/concentration Cognition(Intelligence Est.): average Oriented: Awake, Alert, Oriented times three Insight: poor Judgment: Poor Diagnoses 1.Unspecified mood disorder 2. R/O MDD with psychosis 3. R/O Bipolar disorder 4 A-FIB/CHADSVASC SCREEN A-FIB/CHADSVASC A-FIB History Current/History of A-Fib/PAF?: No Current PO Anticoag Therapy: No Age/Risk Factor Scoring CHADSVASC: CHADSVASC Response (Comments) Value Age Risk Factor Age < 65 years old 0 Gender Risk Factor Male 0 Hx of CHF No 0 Hx of HTN No 0 Hx of Stroke/TIA/or VTE No 0 Hx of Diabetes No 0 Hx of Vascular Disease No 0 Total 0 Treatment Treatment ordered: NONE Reason Anticoagulant not given: Not indicated/[id number] Assessment/Plan Assessment The patient couldn't be evaluated today, because he was sound asleep. I eval uated him on 01/28/21 while he was at the covid unit, I zoomed with him. He is depressed but he is trying to cover his depression by trying to look extremely happy. He has been acting bizarre according to family members, acting paranoid, leaving his GF alone before he was found and brought to the ED. He could have abused a substance, one of the many that are not detected in regular urine tox. He had a hard time falling asleep yesterday, he was still psychotic, he had to be restrained. Initial Treatment Plan 1. Patient was admitted on a [9.39] status. 2. Complete history was obtained. 3. With patients permission, family will be contacted and database will be expanded. 4. Patients medication regimen will be reviewed and changed accordingly. 5. Patient will be provided with protected environment. 6. Patient will be treated with individual, group, and milieu therapies. 7. Patient will receive supportive psych-education. 8. Discharge planning will commence immediately. 9. Outpatient follow-up treatment will be strongly recommended. 10. The initial treatment plan will focus initially on: * Depression. * Risk for suicide. * altered thoughts * anxiety * psychosis ESTIMATED LENGTH OF STAY: 5-7 DAYS. TIME SPENT COUNSELING AND COORDINATING INITIAL CARE: 60 minutes. Tobacco Cessation Screen If Patient is a Smoker no N/A-No Antipsychotics Vital Signs Vital Signs Date Time Temp Pulse Resp B/P (MAP) Pulse Ox O2 Delivery O2 Flow Rate FiO2 01/28/21 21:08 96.4 72 18 121/71 (88) 96 Room Air Medications Scheduled Acetaminophen (Tylenol Extra Strength) 500 Mg Tablet, 1,000 MG PO QHS for . , (Reported) Aspirin (Aspirin) 325 Mg Tablet, 650 MG PO QHS for . , (Reported) Cholecalciferol (Vitamin D3) (Vitamin D3) 1,000 Unit Tablet, 1,000 UNITS PO DAILY for . , (Reported) Diphenhydramine HCl (Benadryl) 25 Mg Capsule, 50 MG PO QHS for . , (Reported) Lisinopril (Lisinopril) 10 Mg Tablet, 10 MG PO DAILY for . , (Reported) Secukinumab (Cosentyx Pen (2 Pens)) 150 Mg/1 Ml Pen.injctr, 300 MG SC Q4WKS for . , (Reported) LAST DOSE WAS IN THE BEGINNING OF DECEMBER Scheduled PRN Rizatriptan Benzoate (Maxalt) 10 Mg Tablet, 10 MG PO BID PRN for MIGRAINE, (Reported) Allergies Coded Allergies: No Known Allergies (Unverified , 01/26/21) REMBERTO JOSE MD Jan 29, 2021 22:12 Vital Signs Vital Signs Date Time Temp Pulse Resp B/P (MAP) Pulse Ox O2 Delivery O2 Flow Rate FiO2 01/30/21 13:24 97.7 80 18 135/83 (100) 98 Room Air Current Medications Current Medications Medications (Trade) Dose Ordered Sig/Bruno Route PRN Reason Start Time Stop Time Status Last Admin Dose Admin Acetaminophen (Tylenol Tab) 650 mg Q6HP PRN PO HEADACHE or MILD DISCOMFORT 01/28/21 20:15 Al Hydrox/Mg Hydrox/Simethicone (Mylanta) 30 ml Q4HP PRN PO HEARTBURN/INDIGESTION 01/28/21 20:15 Aspirin (Ecotrin) 81 mg DAILY PO 01/29/21 09:00 01/30/21 10:09 Chlorpromazine HCl (Thorazine) 100 mg STAT STAT IM 01/29/21 03:14 01/29/21 03:17 DC 01/29/21 03:34 Diphenhydramine HCl (Benadryl) 50 mg STAT STAT IM 01/28/21 23:16 01/28/21 23:20 DC 01/28/21 23:33 Diphenhydramine HCl (Benadryl) 50 mg STAT STAT IM 01/29/21 01:25 01/29/21 01:28 DC 01/29/21 01:40 Haloperidol (Haldol) 10 mg STAT STAT IM 01/28/21 23:16 01/28/21 23:20 DC 01/28/21 23:33 Haloperidol (Haldol) 10 mg STAT STAT IM 01/29/21 01:25 01/29/21 01:28 DC 01/29/21 01:40 Home Med (Home Med List Complete!) ASDIRECTED XX 01/29/21 00:45 01/29/21 00:46 DC Lisinopril (Prinivil) 10 mg DAILY PO 01/31/21 09:00 Lorazepam (Ativan) 1 mg STAT STAT IM 01/29/21 01:25 01/29/21 01:28 DC 01/29/21 01:40 Lorazepam (Ativan) 2 mg STAT STAT IM 01/28/21 23:16 01/28/21 23:20 DC 01/28/21 23:33 Magnesium Hydroxide (Milk Of Magnesia) 30 ml DAILYPRN PRN PO CONSTIPATION 10/29/21 20:15 Olanzapine (ZyPREXA ZYDIS) 5 mg Q4HP PRN PO AGITATION 01/28/21 20:15 01/30/21 05:54 Sertraline HCl (Zoloft) 50 mg DAILY PO 01/29/21 09:00 01/30/21 10:09 Trazodone HCl (Desyrel) 50 mg QHSP PRN PO INSOMNIA 01/28/21 20:15 Allergies Coded Allergies: No Known Allergies (Unverified , 01/26/21) REMBERTO JOSE MD Jan 30, 2021 15:56
--- NOTE | 2021-01-30 16:19 | MHIPNPDOC ---
[facility] Progress Note Progress Note DATE OF SERVICE: 01/30/21 HISTORY: 45 year old male with h/o confusion, paranoia, who was admitted to the Hospital because he was feeling confused. He denies racing thoughts, he says he is less anxious and less depressed. Denies suicidal/homicidal ideation. This time, he tells me that he he is ready to go home,he misses his dg, who, he says is home alone. He says he has to pay his bills and tells me his GF is hospitalized but not in this area, because he caught covid too. He says he doesn't know why was he confused, he adamantly denies using illegal drugs ( those that can't be detected in urine toxicology) VITAL SIGNS: See below. NEW TEST RESULTS: See below CURRENT MEDICATIONS: See below. MENTAL STATUS EXAMINATION: General Appearance: well groomed, appears stated age, hospital scubs/clothing Build: overweight Demeanor: average Eye Contact: good Activity: calm, cooperative Behavior: cooperative, restless Speech: clear, spontaneous, reg/rate,rhythm,volume, organized at this time Mood: mildly anxious Affect: full, appropriate, congruent with mood Thought Process: linear and coherent Thought Content (Delusions): Denies Thought Content (Aggressive): none reported Perception (Hallucinations): none reported Perception (Other): none reported Cognition (Impairment of): none Cognition(Intelligence Est.): average Oriented: Awake, Alert, Oriented times three Insight: improving Judgment: improving Diagnoses 1.Unspecified mood disorder 2. R/O MDD with psychosis 3. R/O Bipolar disorder ASSESSMENT: The patient is more organized, he is mildly anxious, but he is not suicidal, homicidal or psychotic at this time. Will continue with current treatment plan MANAGEMENT PLAN: As above TIME SPENT: 15 minutes. Vital Signs Vital Signs Date Time Temp Pulse Resp B/P (MAP) Pulse Ox O2 Delivery O2 Flow Rate FiO2 01/30/21 13:24 97.7 80 18 135/83 (100) 98 Room Air Current Medications Current Medications Medications (Trade) Dose Ordered Sig/Bruno Route PRN Reason Start Time Stop Time Status Last Admin Dose Admin Acetaminophen (Tylenol Tab) 650 mg Q6HP PRN PO HEADACHE or MILD DISCOMFORT 01/28/21 20:15 Al Hydrox/Mg Hydrox/Simethicone (Mylanta) 30 ml Q4HP PRN PO HEARTBURN/INDIGESTION 01/28/21 20:15 Aspirin (Ecotrin) 81 mg DAILY PO 01/29/21 09:00 01/30/21 10:09 Chlorpromazine HCl (Thorazine) 100 mg STAT STAT IM 01/29/21 03:14 01/29/21 03:17 DC 01/29/21 03:34 Diphenhydramine HCl (Benadryl) 50 mg STAT STAT IM 01/28/21 23:16 01/28/21 23:20 DC 01/28/21 23:33 Diphenhydramine HCl (Benadryl) 50 mg STAT STAT IM 01/29/21 01:25 01/29/21 01:28 DC 01/29/21 01:40 Haloperidol (Haldol) 10 mg STAT STAT IM 01/28/21 23:16 01/28/21 23:20 DC 01/28/21 23:33 Haloperidol (Haldol) 10 mg STAT STAT IM 01/29/21 01:25 01/29/21 01:28 DC 01/29/21 01:40 Home Med (Home Med List Complete!) ASDIRECTED XX 01/29/21 00:45 01/29/21 00:46 DC Lisinopril (Prinivil) 10 mg DAILY PO 01/31/21 09:00 Lorazepam (Ativan) 1 mg STAT STAT IM 01/29/21 01:25 01/29/21 01:28 DC 01/29/21 01:40 Lorazepam (Ativan) 2 mg STAT STAT IM 01/28/21 23:16 01/28/21 23:20 DC 01/28/21 23:33 Magnesium Hydroxide (Milk Of Magnesia) 30 ml DAILYPRN PRN PO CONSTIPATION 01/28/21 20:15 Olanzapine (ZyPREXA ZYDIS) 5 mg Q4HP PRN PO AGITATION 01/28/21 20:15 01/30/21 05:54 Sertraline HCl (Zoloft) 50 mg DAILY PO 01/29/21 09:00 01/30/21 10:09 Trazodone HCl (Desyrel) 50 mg QHSP PRN PO INSOMNIA 01/28/21 20:15 Allergies Coded Allergies: No Known Allergies (Unverified , 01/26/21) REMBERTO JOSE MD Jan 30, 2021 16:09
[2021-01-31 06:51] VITALS: BP 137/84
[2021-01-31 09:18] VITALS: BP 137/84
[2021-01-31] MEDS: ASPIRIN 81MG ENTERIC TABLET PO SCH (09:18)
[2021-01-31] MEDS: SERTRALINE HCL 50 MG TAB PO SCH (09:18)
[2021-01-31] MEDS ORDERED: SERT50TA29 PO (09:52)
--- NOTE | 2021-01-31 11:11 | MHDSPDOC ---
[facility] Discharge Summary Discharge Summary DATE OF ADMISSION: Jan 28, 2021 at 22:59 DATE OF DISCHARGE: January 31, 2021 at 956 DISCHARGE DIAGNOSES: 1.Unspecified mood disorder 2. Insomnia history REASON FOR ADMISSION: Patient is a 45 year old Single, male who was transferred to inpatient psychiatry from medical unit for with h/o confusion, paranoia, who was admitted to the Hospital because he was feeling confused. He denies racing thoughts, he says he is less anxious and less depressed. Denies suicidal/homicidal ideation. This time, he tells me that he he is ready to go home,he misses his dog, who, he says is home alone. He says he has to pay his bills and tells me his GF is hospitalized but not in this area, because he caught covid too. He says he doesn't know why was he confused, he adamantly denies using illegal drugs (those that can't be detected in urine toxicology). It appears that the patient was confused and concurrently had Covid symptoms but did not know this. He was walking his dog and became confused. Patient possibly was confused due to his Covid states that he has had difficulty sleeping x 1 month. According to medical H + P patient had no other abnormalities relating to Covid. PER H + P on medical: Patient is 45-year-old male brought into the emergency room due to psychosis found to be positive for coronavirus with uncontrolled hypertension. Psychiatrist refuses admission to inpatient mental health unit and recommended admission to the medical service for uncontrolled hypertension and evaluation for coronavirus complications. Patient says that he has a brain tumor but this was evaluated with a CT of the head which was negative. He complains of headache for the past year for which she takes Tylenol or ibuprofen at home without nausea or vomiting diplopia or changes in visual acuity. Despite being positive for coronavirus patient has had no fever chills anosmia or dysgeusia changes in appetite nausea vomiting abdominal pain diarrhea cough shortness of breath chest pain pressure tightness muscle aches joint pain skin rash. Patient was given metoprolol Lisinopril with improvement in blood pressure to 134/90. Patient was kept on contact and droplet precautions due to coronavirus infection. Inflammatory markers were normal chest x-ray had no infiltrates and patient is saturating 100% on room air not requiring supplemental oxygen and in no distress. VITAL SIGNS: See below. CONSULTANTS INVOLVED: See Medical H + P by Hospitalist TREATMENT AND PROGRESS ON THE UNIT: Patient was admitted to the [facility] on a 9.39 legal status was afforded the following treatment modalities: 1) Individual Therapy 2) Group Therapy 3) Medication Management 4) Milieu Therapy 5) Safe Environment HOSPITAL COURSE: Patient was admitted to [facility] on a 9.39 legal status. Patient was started on Zoloft and continued on his medications from the medical unit, he found medications beneficial and tolerated them well. Mood, anxiety, and intrusive thoughts improved with treatment. Pt was unable to attend groups during stay due to COVID quarantine. Pts symptoms improved with treatment. On day of discharge pt. denied depression, anxiety, insomnia, SI/HI, hallucinations, delusions. Pt was discharged home with follow-up with. Pt felt safe for discharge. DISCHARGE ASSESSMENT: In today's interview, patient is alert and oriented, pt.s dress is appropriate. Hygiene and grooming is well-kempt. Smiles on approach and is pleasant and engaged in the interview. Denies depression and anxiety. Denies suicidal and homicidal ideation, planning or intent. Denies and is not observed with winsome, psychotic symptoms of delusions, bizarre thinking, obsessions, paranoia, ruminations illogical thoughts, flight of ideas or having poor insight and judgement. Reinforced with patient need to abstain from alcohol and drugs. At discharge patient has normal mentation, declines further hospitalization on a voluntary status and meets criteria for discharge today. He stated that he was driving in the area, walking his dog and became confused. He has not recollection of why this occurred. At his discharge he was alert and oriented to person, place, time and situation. He further was able to recall short and fdc memory. He states that he is returning home and that he no longer feels the need for inpatient hospitalization. MENTAL STATUS EXAMINATION ON DISCHARGE: Patient is a 45 year old Single, male who was transferred to inpatient psychiatry from medical unit for with h/o confusion, paranoia, who was admitted to the Hospital because he was feeling confused. Speech: Is fluid, conversant, normal rate, tone and volume Language skills are intact Thought processes including: linear and goal oriented Thought content: denies depression and anxiety. Denies suicidal/homicidal ideation, planning or intent. Abstract reasoning, and computation: fair Description of associations: denies, none observed Description of abnormal or psychotic thoughts: denies, none observed. Judgment: fair Insight: fair Orientation: alert and oriented to person, place, time and situation Recent and remote memory: intact Attention span and concentration: good Language: expansive Fund of knowledge: average Mood: Euthymic Mood Affect: reactive Suicide Risk Assessment: 1) Does the patient wish to be ? No 2) Since your admission, have you had any actual thought of killing yourself? No 3) Since your admission, have you been thinking about how you might do this? No 4) Since your admission, have you had these thoughts and had some intention of acting on them? No 5) Since your admission, have you started to work out or worked out the details of how to kill yourself? No 5A) Do you intent to carry out this plan? No and NA 6) Have you ever done anything, started anything, or prepared to do anything with any intent to ? No 6A) How long since your admission did you do any of these? NA MEDICATIONS ON DISCHARGE: See Medication Reconciliation PLAN/FOLLOWUP ARRANGEMENTS: At the time of his discharge the patient did not have appointments for outpatient mental health services, the inventory control planner is looking into a new provider for him, she was unsuccessful at the time of his discharge. The patient was aware of this and requested that he be called about his appointments. The amount of time spent in the coordination of care for this patient was approximately 25 minutes ETOH/Disorder Med Rx ETOH/DRUG DISORDER RX: N/A Vital Signs/I&Os Vital Signs Date Time Temp Pulse Resp B/P (MAP) Pulse Ox O2 Delivery O2 Flow Rate FiO2 01/31/21 09:18 137/84 01/31/21 06:51 98.7 78 16 96 Room Air Medications Scheduled Acetaminophen (Tylenol Extra Strength) 500 Mg Tablet, 1,000 MG PO QHS for . , (Reported) Aspirin (Aspirin) 325 Mg Tablet, 650 MG PO QHS for . , (Reported) Cholecalciferol (Vitamin D3) (Vitamin D3) 1,000 Unit Tablet, 1,000 UNITS PO DA IAN for . , (Reported) Diphenhydramine HCl (Benadryl) 25 Mg Capsule, 50 MG PO QHS for . , (Reported) Lisinopril (Lisinopril) 10 Mg Tablet, 10 MG PO DAILY for . , (Reported) Secukinumab (Cosentyx Pen (2 Pens)) 150 Mg/1 Ml Pen.injctr, 300 MG SC Q4WKS for . , (Reported) LAST DOSE WAS IN THE BEGINNING OF DECEMBER Sertraline HCl (Sertraline HCl) 50 Mg Tablet, 50 MG PO DAILY for Depression, #7 Sertraline Hcl (Sertraline HCl) 50 Mg Tablet, 50 MG PO DAILY for depression, #7 Scheduled PRN Rizatriptan Benzoate (Maxalt) 10 Mg Tablet, 10 MG PO BID PRN for MIGRAINE, (Reported) Allergies Coded Allergies: No Known Allergies (Unverified , 01/26/21) OZZIE HERNANDEZ NP Jan 31, 2021 10:00
[2021-01-31] MEDS ORDERED: SERT-141 PO (14:25)
== END 2021-01-31 16:38 | disposition home or self-care (01) | DRG 753 ==
LOC: M PSY 22:59
PROVIDERS: ADMIT Psychiatry & Neurology Psychiatry; ATTEND Psychiatry & Neurology Psychiatry
DX: F39 Unspecified mood [affective] disorder (principal); Z78.1 Physical restraint status; I10 Essential (primary) hypertension; Z86.16 Personal history of COVID-19; Z79.82 Long term (current) use of aspirin; Z79.899 Other long term (current) drug therapy; E78.5 Hyperlipidemia, unspecified; K02.9 Dental caries, unspecified; J30.2 Other seasonal allergic rhinitis; G47.00 Insomnia, unspecified